=== PATIENT | male | born 1970 | race Caucasian/White ===

== ENCOUNTER 2019-04-16 09:29 | Emergency (ER) | payer OTHER ==
[~2019-04-16] VITALS: Ht 175.3 cm; Wt 95.3 kg
[2019-04-16] MEDS ORDERED: IV NORMAL SALINE 1000ML BAG 1,000 ML IV ONE (09:51)
--- NOTE | 2019-04-16 09:58 | PHYS DOC ---
Past Medical History Past Medical History: Hypertension, Migraines Past Surgical History: Other (left lower ext ortho surgery) Alcohol Use: None Drug Use: None Adult General Chief Complaint Chief Complaint: DIZZY/LIGHT HEADED HPI HPI 49-year-old male presenting the emergency room today with feeling lightheaded and dizzy after having a migraine earlier this morning. 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 He has photophobia and phonophobia. His headache this morning was similar to previous headaches and was not sudden in onset. It is nonradiating and currently is much better but now he is having lighthe adedness and dizziness. ROS is neg for chest pain, shortness of breath, vomiting, abdominal pain, fevers or chills. He denies neck stiffness. All other review of systems is negative. ED course: 41-year-old male with dizziness. EKG obtained and reviewed by myself shows sinus rhythm with a regular rate. ST segments congruent. Not suggestive of ACS. We'll give the patient IV fluids Reglan and Benadryl here in the emergency room along with performing blood work head CT and urinalysis. Workup in the ER is negative. Patient is feeling better on reexamination. We'll refer the patient to primary care physician and neurologist within the next 2 days. Patient will get an outpatient MRI of the brain within the next week.The patient has been examined and was not found to have an emergency medical condition. The patient was then discharged home in stable condition to follow up with their primary ca re physician over the next 1-2 days. They were to return if their symptoms worsened or if they were concerned for any reason. They were also instructed to return to the emergency department if they were unable to get the recommended and appropriate follow-up. [id number] discharge instructions and return precautions were given. Patient's questions were answered to their satisfaction. Patient is comfortable with plan. Current Medications Current Medications Current Medications Medications (Trade) Dose Ordered Sig/Hima Start Time Stop Time Status Last Admin Dose Admin Diphenhydramine HCl (Benadryl) 25 mg 1X ONCE 04/16/19 10:00 04/16/19 10:01 DC 04/16/19 10:06 25 MG Meclizine HCl (Antivert) 25 mg 1X ONCE 04/16/19 10:00 04/16/19 10:01 DC 04/16/19 10:06 25 MG Metoclopramide HCl (Reglan) 10 mg 1X ONCE 04/16/19 10:00 04/16/19 10:01 DC 04/16/19 10:06 10 MG Sodium Chloride 1,000 ml @ 1,000 mls/hr Q1H ONCE 04/16/19 09:51 04/16/19 10:50 DC 04/16/19 10:07 1,000 MLS/HR Allergies Allergies Allergies Coded Allergies Type Severity Reaction Last Updated Verified No Known Drug Allergies 04/16/19 No Physical Exam Physical Exam Constitutional: Well developed, well nourished, no acute distress, non-toxic appearance. [] HENT: Normocephalic, atraumatic, bilateral external ears normal, oropharynx moist, no oral exudates, nose normal. [] Eyes: PERRLA, EOMI, conjunctiva normal, no discharge. [] Neck: Normal range of motion, no tenderness, supple, no stridor. [] Cardiovascular:Heart rate regular rhythm, no murmur [] Lungs & Thorax: Bilateral breath sounds clear to auscultation [] Abdomen: Bowel sounds normal, soft, no tenderness, no masses, no pulsatile masses. [] Skin: Warm, dry, no erythema, no rash. [] Back: No tenderness, no CVA tenderness. [] Extremities: No tenderness, no cyanosis, no clubbing, ROM intact, no edema. [] Neurologic: Mental status: Awake oriented and alert x3 Cranial nerves: Extraocular movements intact, eyebrows sabas bilaterally, smile symmetric, uvula elevation nl, shoulder shrug intact bilaterally, tongue protrusion normal DTRs: 2+ Sensation: equal and normal in all extremities Strength: 5/5 in upper and lower extremities bilaterally Psychologic: Affect normal, judgement normal, mood normal. [] Current Patient Data Vital Signs Vital Signs Date Time Temp Pulse Resp B/P (MAP) Pulse Ox O2 Delivery O2 Flow Rate FiO2 04/16/19 09:50 97.9 58 25 139/91 (107) 96 Room Air 97.9 Lab Values Laboratory Tests Test 04/16/19 09:48 04/16/19 10:10 White Blood Count 11.8 x10^3/uL (4.0-11.0) H Red Blood Count 4.69 x10^6/uL (4.30-5.70) Hemoglobin 15.4 g/dL (13.0-17.5) Hematocrit 43.8 % (39.0-53.0) Mean Corpuscular Volume 93 fL (79-100) Mean Corpuscular Hemoglobin 33 pg (25-35) Mean Corpuscular Hemoglobin Concent 35 g/dL (31-37) Red Cell Distribution Width 13.0 % (11.5-14.5) Platelet Count 253 x10^3/uL (140-400) Neutrophils (%) (Auto) 60 % (31-73) Lymphocytes (%) (Auto) 30 % (24-48) Monocytes (%) (Auto) 8 % (0-9) Eosinophils (%) (Auto) 2 % (0-3) Basophils (%) (Auto) 1 % (0-3) Neutrophils # (Auto) 7.1 x10^3/uL (1.8-7.7) Lymphocytes # (Auto) 3.5 x10^3/uL (1.0-4.8) Monocytes # (Auto) 0.9 x10^3/uL (0.0-1.1) Eosinophils # (Auto) 0.2 x10^3/uL (0.0-0.7) Basophils # (Auto) 0.1 x10^3/uL (0.0-0.2) Sodium Level 138 mmol/L (136-145) Potassium Level 3.8 mmol/L (3.5-5.1) Chloride Level 100 mmol/L (98-107) Carbon Dioxide Level 27 mmol/L (21-32) Anion Gap 11 (6-14) Blood Urea Nitrogen 14 mg/dL (8-26) Creatinine 0.8 mg/dL (0.7-1.3) Estimated GFR (Cockcroft-Gault) 103.2 BUN/Creatinine Ratio 18 (6-20) Glucose Level 104 mg/dL (70-99) H Glucose (Fingerstick) 105 mg/dL (70-99) H Calcium Level 9.7 mg/dL (8.5-10.1) Total Bilirubin 0.5 mg/dL (0.2-1.0) Aspartate Amino Transferase (AST) 21 U/L (15-37) Alanine Aminotransferase (ALT) 22 U/L (16-63) Alkaline Phosphatase 94 U/L (46-116) Troponin I Quantitative < 0.017 ng/mL (0.000-0.055) Total Protein 8.0 g/dL (6.4-8.2) Albumin 4.1 g/dL (3.4-5.0) Albumin/Globulin Ratio 1.1 (1.0-1.7) Urine Collection Type Unknown Urine Color Yellow Urine Clarity Cloudy Urine pH 6.5 Urine Specific [place] 1.010 Urine Protein Negative mg/dL (NEG-TRACE) Urine Glucose (UA) Negative mg/dL (NEG) Urine Ketones (Stick) Negative mg/dL (NEG) Urine Blood Negative (NEG) Urine Nitrite Negative (NEG) Urine Bilirubin Negative (NEG) Urine Urobilinogen Dipstick 1.0 mg/dL (0.2 mg/dL) Urine Leukocyte Esterase Negative (NEG) Urine RBC 0 /HPF (0-2) Urine WBC Occ /HPF (0-4) Urine Squamous Epithelial Cells None /LPF Urine Bacteria 0 /HPF (0-FEW) Urine Hyaline Casts Few /HPF Urine Mucus Slight /LPF Laboratory Tests 04/16/19 09:48 Laboratory Tests 04/16/19 09:48 EKG EKG [] Radiology/Procedures Radiology/Procedures [] Course & Med Decision Making Course & Med Decision Making Pertinent Labs and Imaging studies reviewed. (See chart for details) [] Dragon Disclaimer Dragon Disclaimer This electronic medical record was generated, in whole or in part, using a voice recognition dictation system. Departure Departure Impression: Primary Impression: Dizzy Disposition: 01 HOME, SELF-CARE Condition: STABLE Referrals: ELIOT ABDI MD Patient Instructions: Dizziness Additional Instructions: Thank you for allowing us to participate in your care today. Return to the emergency department you have any new or worsening symptoms, or if you are concerned for any reason. Return to emergency department if you have any new or concerning symptoms including but not limited to fever, chills, nausea, vomiting, intractable pain, any new rashes, chest pain, shortness of air, uncontrolled bleeding, difficulty breathing, and/or vision loss. Follow up with your primary care physician within 1-2 days and neurology in 2-3 days for treatment of migraines. You will need an outpt mri of the brain within the next week. Call your Primary Doctor tomorrow and inform them of your visit today. If you do not have a primary care provider we are happy to provide you w ith a list of our primary care providers contact information. This condition should be evaluated by your primary care physician and any recommended consulting services for continued management within 2 days after discharge. If at any time, you are having difficulty getting into your primary care doctor or a specialist, return to the emergency department. Scripts Meclizine Hcl (MECLIZINE HCL) 25 Mg Tablet 1 TAB PO PRN TID, #10 TAB 0 Refills Prov: BASIL LINDSEY MD 04/16/19 BASIL LINDSEY MD Apr 16, 2019 09:58
[2019-04-16] MEDS ORDERED: MECLIZINE HCL 12.5 MG TABLET. PO ONE (10:00)
[2019-04-16] MEDS ORDERED: diphenhydrAMINE 50 MG/ML VIAL IVP ONE (10:00)
[2019-04-16] MEDS ORDERED: METOCLOPRAMIDE 10 MG TABLET. PO ONE (10:00)
[2019-04-16 10:19] LABS: BILIRUBIN,URINE NEGATIVE (NEG); CLARITY,URINE CLOUDY; COLOR,URINE YELLOW; NITRITE,URINE NEGATIVE (NEG); PH,URINE 6.5; PROTEIN,URINE NEGATIVE (NEG-TRACE)
[2019-04-16 10:20] LABS: BASO # 0.1 x10^3/uL (0.0-0.2); BASO % 1 % (0-3); EOS # 0.2 x10^3/uL (0.0-0.7); EOS % 2 % (0-3); HEMATOCRIT 43.8 % (39.0-53.0); HEMOGLOBIN 15.4 g/dL (13.0-17.5); LYMPH # 3.5 x10^3/uL (1.0-4.8); LYMPH % 30 % (24-48); MEAN CORPUSCULAR HEMOGLOBIN 33 pg (25-35); MEAN CORPUSCULAR HGB CONC 35 g/dL (31-37); MEAN CORPUSCULAR VOLUME 93 fL (79-100); MONO # 0.9 x10^3/uL (0.0-1.1); MONO % 8 % (0-9); NEUT # 7.1 x10^3/uL (1.8-7.7); NEUT % 60 % (31-73); PLATELET COUNT 253 x10^3/uL (140-400); RED BLOOD COUNT 4.69 x10^6/uL (4.30-5.70); WHITE BLOOD COUNT 11.8 x10^3/uL (4.0-11.0)
[2019-04-16 10:24] LABS: CALCIUM 9.7 mg/dL (8.5-10.1); CREATININE 0.8 mg/dL (0.7-1.3); GFR 103.2; POTASSIUM 3.8 mmol/L (3.5-5.1)
[2019-04-16 10:29] LABS: ALBUMIN 4.1 g/dL (3.4-5.0); ALBUMIN/GLOBULIN RATIO 1.1 (1.0-1.7); TOTAL BILIRUBIN 0.5 mg/dL (0.2-1.0)
--- NOTE | 2019-04-16 10:43 | RAD ---
CT HEAD WO CONTRAST History: Headache. Generalized weakness. Comparison: None. Technique: Noncontrast CT imaging was performed of the head. Coronal reconstructions were performed. Exposure: One or more of the following individualized dose reduction techniques were utilized for this examination: 1. Automated exposure control 2. Adjustment of the mA and/or kV according to patient size 3. Use of iterative reconstruction technique. Findings: No intracranial hemorrhage. No mass effect. No hydrocephalus. Mild brain parenchymal volume loss advanced for age. Mild nonspecific foci of decreased attenuation within the right frontal periventricular white matter, most often due to chronic microvascular ischemia although can be seen with sequela of migraine headaches, less likely vasculitis or demyelinating disease. Imaged orbits are unremarkable. Imaged paranasal sinuses and mastoid air cells are clear. Impression: 1. No acute intracranial abnormality. 2. Mild brain parenchymal volume loss, advanced for age. 3. Mild nonspecific white matter changes, as described. Electronically signed by: Syed Horner DO (04/16/2019 10:41 AM) [id number]
[2019-04-16 10:54] VITALS: BP 125/82
[2019-04-16 11:01] LABS: BACTERIA,URINE 0 /HPF (0-FEW); HYALINE CASTS, URINE FEW /HPF; RBC,URINE 0 /HPF (0-2); WBC,URINE OCC /HPF (0-4)
[2019-04-16] MEDS ORDERED: MECL25TA3 PO (11:08)
--- NOTE | 2019-04-16 14:46 | EKG ---
[facility] [address] [place] [address] Test Date: 2019-04-16 Test Time: 09:41:18 Pat Name: KHADIJAH ROSA Department: Room: Gender: M Ctrs: : 1970 Requested By: BASIL LINDSEY Order Number: [id number] Reading MD: Measurements Intervals [place] Rate: 58 P: 39 AR: 180 QRS: 26 QRSD: 94 T: 16 QT: 416 QTc: 408 Interpretive Statements SINUS RHYTHM QRS(T) CONTOUR ABNORMALITY CONSIDER ANTEROSEPTAL MYOCARDIAL DAMAGE POSSIBLY ABNORMAL ECG RI6.01 No previous ECG available for comparison
== END 2019-04-16 11:20 | disposition home or self-care (01) ==
LOC: ER 09:29
DX: R42 Dizziness and giddiness (principal); G43.909 Migraine, unspecified, not intractable, without status migrainosus; I10 Essential (primary) hypertension
CPT/HCPCS: 36415; 70450; 80053; 81001; 82962; 84484; 85025; 93005; 96361; 96374; 99285; J1200; J7030; J8597

== ENCOUNTER 2020-01-06 04:21 | Emergency (ER) | payer OTHER ==
[~2020-01-06 04:21] MED LIST: MECL-75 PO
--- NOTE | 2020-01-06 04:57 | PHYS DOC ---
Past Medical History Past Medical History: Hypertension, Migraines Past Surgical History: Other Additional Past Surgical Histo: RT TIB/FIB FRACTURE Smoking Status: Current Every Day Smoker Alcohol Use: None Drug Use: None General Adult EDM: Chief Complaint: BACK PAIN OR INJURY HPI: HPI: Patient is a 49 year old male who presents with complaint of right-sided lower back pain that started yesterday and has gotten worse and states that pain radiates around to his right lower abdomen as well. He denies any radiation into the groin or testicle. He states that nothing really worsens the pain but nothing improves that either. He states that he is just not able to get into a comfortable position. Patient rates pain at a 6 out of 10. [] Review of Systems: Review of Systems: Constitutional: Denies fever or chills. [] Respiratory: Denies cough or shortness of breath. [] Cardiovascular: Denies chest pain or edema. [] GI: Denies abdominal pain, nausea, vomiting or diarrhea. [] : Denies dysuria. [] Musculoskeletal: Complains of lower back pain. [] Integument: Denies rash. [] Neurologic: Denies headache, focal weakness or sensory changes. [] Heart Score: Risk Factors: Risk Factors: DM, Current or recent (<one month) smoker, HTN, HLP, family history of CAD, obesity. Risk Scores: Score 0 - 3: 2.5% MACE over next 6 weeks - Discharge Home Score 4 - 6: 20.3% MACE over next 6 weeks - Admit for Clinical Observation Score 7 - 10: 72.7% MACE over next 6 weeks - Early Invasive Strategies Allergies: Allergies: Allergies Coded Allergies Type Severity Reaction Last Updated Verified No Known Drug Allergies 04/16/19 No Physical Exam: PE: Constitutional: Well developed, well nourished, no acute distress, non-toxic appearance. [] Neck: Normal range of motion, no tenderness, supple, no stridor. [] Cardiovascular: Regular rate and rhythm [] Lungs & Thorax: Bilateral breath sounds clear to auscultation [] Abdomen: Bowel sounds normal, soft, no tenderness. [] Skin: Warm, dry, no erythema, no rash. [] Back: No tenderness, no CVA tenderness. [] EKG: EKG: [] Radiology/Procedures: Radiology/Procedures: [] Course & Med Decision Making: Course & Med Decision Making Pertinent Labs and Imaging studies reviewed. (See chart for details) [] Dragon Disclaimer: Dragon Disclaimer: This electronic medical record was generated, in whole or in part, using a voice recognition dictation system. Departure Departure Impression: Primary Impression: Low back pain Qualified Codes: M54.5 - Low back pain Additional Impression: Muscle spasm Disposition: HOME, SELF-CARE Condition: STABLE Referrals: SIRISHA ANDREW JR, MD (PCP) Patient Instructions: Back Pain, Adult Scripts Indomethacin (INDOMETHACIN) 50 Mg Capsule 1 CAP PO TID for arthritis for 10 Days, #30 CAP 0 Refills with food Prov: SHAKEEL CARVALHO Jr. DO 01/06/20 Oxycodone/Apap 5-325 (PERCOCET 5-325 MG TABLET ) 1 Each Tablet 1-2 EACH PO Q6HRS PRN for PAIN, #16 TAB pain Prov: SHAKEEL CARVALHO Jr. DO 01/06/20 Orphenadrine Citrate (ORPHENADRINE CITRATE) 100 Mg Tablet.er 1 TAB PO BID PRN for MUSCLE SPASMS, #14 TAB Prov: SHAKEEL CARVALHO Jr. DO 01/06/20 Justicifation of Admission Dx: Justifications for Admission: Justification of Admission Dx: Comment: (Not applicable) SHAKEEL CARVALHO Jr. DO Jan 06, 2020 04:57
[2020-01-06] MEDS ORDERED: KETOROLAC 60 MG/2 ML VIAL. IM ONE (05:00)
[2020-01-06 05:04] LABS: BILIRUBIN,URINE NEGATIVE (NEG); CLARITY,URINE CLEAR; COLOR,URINE YELLOW; NITRITE,URINE NEGATIVE (NEG); PROTEIN,URINE NEGATIVE (NEG-TRACE)
[2020-01-06 05:10] LABS: BACTERIA,URINE 0 /HPF (0-FEW); HYALINE CASTS, URINE MODERATE /HPF; RBC,URINE 0 /HPF (0-2); SQUAMOUS EPITHELIAL CELL,UR OCC /LPF
[2020-01-06] MEDS ORDERED: UNABLE MC (05:14)
[2020-01-06] MEDS ORDERED: OXYC1TAB15 PO (05:43)
[2020-01-06] MEDS ORDERED: INDO50CA15 PO (05:43)
[2020-01-06] MEDS ORDERED: ORPH100T PO (05:43)
== END 2020-01-06 06:05 | disposition home or self-care (01) ==
LOC: ER 04:21
DX: M54.5 Low back pain (principal); M62.838 Other muscle spasm; G43.909 Migraine, unspecified, not intractable, without status migrainosus; I10 Essential (primary) hypertension; F17.200 Nicotine dependence, unspecified, uncomplicated; Z98.890 Other specified postprocedural states
CPT/HCPCS: 81001; 96372; 99283; J1885